=== PATIENT | male | born 1980 | race Caucasian/White ===

== ENCOUNTER 2020-07-30 15:04 | Inpatient (IN) | payer MEDICARE, MEDICAID ==
[~2020-07-30] VITALS: Ht 170.2 cm; Wt 95.8 kg
--- NOTE | 2020-07-30 15:04 | NUR ---
PT BIBRA 102 FROM HOME C/O BILATERAL LOWER EXTREMITY SWELLING. PT IS AAOX4, NOT IN RESPIRATORY DISTRESS, HOOKED TO AUTOMOTIVE POWER ELECTRONICS ENGINEER, KEPT RESTED AND COMFORTABLE. WILL CONTINUE TO MONITOR.
--- NOTE | 2020-07-30 15:17 | NUR ---
SEEN AND EXAMINED BY .
[2020-07-30] MEDS ORDERED: IV NS 0.9% 1,000 ML BAG IV ONE (15:30)
--- NOTE | 2020-07-30 15:30 | NUR ---
ER PHLEB AT BEDSIDE FOR BLOOD DRAW.
--- NOTE | 2020-07-30 15:32 | NUR ---
SUPERVISOR SALVAGE AT BEDSIDE FOR US.
--- NOTE | 2020-07-30 15:48 | NUR ---
PICC LINE NURSE AT BEDSIDE.
[2020-07-30 16:21] LABS: BASOPHILS % (AUTO) 0.2 % (0.0-2.0); EOSINOPHILS % (AUTO) 2.2 % (0.0-6.0); HEMATOCRIT 44 % (39-51); HEMOGLOBIN 14.6 g/dL (13.5-17.5); LYMPHOCYTES # (AUTO) 2.2 /CMM (0.8-4.8); LYMPHOCYTES % (AUTO) 22.1 % (20.0-44.0); MEAN CORPUSCULAR HGB CONC 33 g/dl (31.0-36.0); MEAN CORPUSCULAR VOLUME 85 fL (80-96); MONOCYTES # (AUTO) 0.6 /CMM (0.1-1.30); MONOCYTES % (AUTO) 6.2 % (2.0-12.0); NEUTROPHILS % (AUTO) 69.3 % (43.0-81.0); PLATELET COUNT (AUTO) 270 /CMM (150-450); RED BLOOD CELL COUNT(AUTO) 5.17 MIL/uL (4.5-6.0); WHITE BLOOD COUNT (AUTO) 10.2 K/uL (4.3-11.0)
[2020-07-30 16:31] LABS: CALCIUM, SERUM 8.5 mg/dL (8.5-10.1); CREATININE 0.7 mg/dL (0.6-1.3); POTASSIUM 3.2 mmol/L (3.5-5.1)
[2020-07-30 16:44] LABS: ALBUMIN 3.3 g/dL (3.4-5.0); BILIRUBIN,DIRECT 0.4 mg/dL (0.0-0.2); BILIRUBIN,TOTAL 2.2 mg/dL (0.2-1.0); TOTAL PROTEIN, SERUM 7.5 g/dL (6.4-8.2)
[2020-07-30] MEDS ORDERED: VANCOMYCIN 1 GM in IV D5W 250 ML IV ONE (17:30)
[2020-07-30] MEDS ORDERED: CEFEPIME 1 GM in IV D5W 50 ML IV ONE (17:30)
[2020-07-30] MEDS ORDERED: FUROSEMIDE 20 MG/2 ML VIAL IV ONE (18:00)
[2020-07-30] MEDS ORDERED: FUROSEMIDE 20 MG/2 ML VIAL ONE (18:02)
--- NOTE | 2020-07-30 18:09 | NUR ---
[facility] CALLED BIBLIOGRAPHIC SERVICES SPECIALIST PAGED.
[2020-07-30] MEDS ORDERED: ONDANSETRON HCL/PF 4 MG/2 ML VIAL IVP PRN (18:30)
[2020-07-30] MEDS ORDERED: MAGNESIUM HYDROXIDE 30 ML UDC PO PRN (18:30)
[2020-07-30] MEDS ORDERED: ACETAMINOPHEN 325 MG TABLET PO PRN (18:30)
[2020-07-30] MEDS ORDERED: ZOLPIDEM TARTRATE 5 MG TABLET PO PRN (18:30)
[2020-07-30] MEDS ORDERED: MAG HYDROX/AL HYDROX/SIMETH 30 ML UDC PO PRN (18:30)
[2020-07-30] MEDS ORDERED: Z GUARD REMEDY 2 OZ OINT TP PRN (18:30)
--- NOTE | 2020-07-30 18:46 | NUR ---
UNKNOWN SUBSTANCE OBTAINED FROM THE PATIENT. PER PATIENT "EXPERIMENTAL MEDICATION". SENT TO THE PHARMACY FOR SAFE KEEPING.
--- NOTE | 2020-07-30 18:47 | NUR ---
GOT BED 307-2 PENDING COVID RESULTS
--- NOTE | 2020-07-30 20:01 | NUR ---
report given to Tony
[2020-07-30 20:10] VITALS: BP 102/65
--- NOTE | 2020-07-30 20:15 | NUR ---
ADMISSION NOTE PATIENT ADMITTED BY DR. DUNN TO TELEMETRY FOR CELLULITIS ?CHF. PT BROUGHT FROM ER AND PLACED IN RM 307 BED 2. PT CC WAS GEN EDEMA IN THE LEGS AND REPORTED THAT HE PASSED OUT ONL TO AWAKEN WITH INCREASED PAIN TO RIGHT LEG THIS AM. PT BLE EXTREMITIES NOTED TO BE REDDEND AROUND THE SHINS WITH +1 PITTING EDEMA. PT REPORTS HE CANT WALK DUE TO DECREASED FEELING IN RIGHT LEG AND ALSO PAIN LEVEL IN BOTH EXTREMITIES RATED 8/10. PT PLACED IN BED. ORIENTED TO ROOM. CALL LIGHT PLACED WITHIN REACH. NEW ORDERS RECIEVVED. VERBALIZED UNDERSTANDING TO CALL FOR ASSISTANCE IF NEEDED. TELE APPLIED AND READS ST AT 102. WILL CONT TO MONITOR.
--- NOTE | 2020-07-30 20:22 | NUR ---
pt was transferred to [facility] under acls
[2020-07-30] MEDS ORDERED: CEFTRIAXONE 1 G VIAL ONE (21:00)
[2020-07-30] MEDS: MORPHINE SULFATE INJ 2 MG/ML DISP.SYRIN IV PRN (21:03)
[2020-07-30] MEDS: CEFTRIAXONE 1 G in IV D5W 50 ML IV SCH (21:08)
[2020-07-30 23:57] VITALS: BP 119/78
--- NOTE | 2020-07-31 00:30 | NUR ---
MELODY CONTACTED REGARDING PAIN; NO ORDERS RECIEVED. PATIENT COMPLAINING OF PAIN 8/10 TO LEFT HIP AND LEG. INFORMED DR. OLIVER OF PT REQUEST FOR MORE PAIN MEDICATION. REVIEWED PAIN MEDICATION ORDERED. REVIEWED HISTORY AND CURRENT CONDITION. NO NEW ORDERS RECIEVED.
[2020-07-31] MEDS: MORPHINE SULFATE INJ 2 MG/ML DISP.SYRIN IV PRN ×4 (01:02→17:53)
[2020-07-31] MEDS: HYDROCODONE/APAP 5/325MG TABLET PO PRN ×3 (02:30→20:16)
[2020-07-31 04:00] VITALS: BP 127/83
[2020-07-31 06:25] LABS: BASOPHILS # (AUTO) 0.1 /CMM (0.0-0.2); BASOPHILS % (AUTO) 0.6 % (0.0-2.0); EOSINOPHILS % (AUTO) 4.5 % (0.0-6.0); HEMATOCRIT 41 % (39-51); HEMOGLOBIN 13.7 g/dL (13.5-17.5); LYMPHOCYTES # (AUTO) 2.3 /CMM (0.8-4.8); LYMPHOCYTES % (AUTO) 25.5 % (20.0-44.0); MEAN CORPUSCULAR HGB CONC 34 g/dl (31.0-36.0); MEAN CORPUSCULAR VOLUME 85 fL (80-96); MONOCYTES # (AUTO) 0.6 /CMM (0.1-1.30); MONOCYTES % (AUTO) 6.4 % (2.0-12.0); NEUTROPHILS # (AUTO) 5.7 /CMM (1.8-8.9); PLATELET COUNT (AUTO) 236 /CMM (150-450); RED BLOOD CELL COUNT(AUTO) 4.79 MIL/uL (4.5-6.0); WHITE BLOOD COUNT (AUTO) 9.1 K/uL (4.3-11.0)
[2020-07-31 06:47] LABS: ALBUMIN 2.7 g/dL (3.4-5.0); BILIRUBIN,DIRECT 0.4 mg/dL (0.0-0.2); BILIRUBIN,TOTAL 1.6 mg/dL (0.2-1.0); CREATININE 0.6 mg/dL (0.6-1.3); MAGNESIUM 1.7 mg/dL (1.8-2.4); PHOSPHORUS 2.3 mg/dL (2.5-4.9); POTASSIUM 3.1 mmol/L (3.5-5.1); TOTAL PROTEIN, SERUM 6.7 g/dL (6.4-8.2)
[2020-07-31 07:01] LABS: THYROID STIMULATING HORMONE 0.835 uIU/mL (0.358-3.74)
--- NOTE | 2020-07-31 07:18 | NUR ---
WILDLIFE CONTROL AGENT OPENING NOTES RECEIVED PT AWAKE IN BED WATCHING TV. A/O X4. ABLE TO MAKE NEEDS KNOWN, C/O PAIN ON B/L LEGS AND LEFT HIP BUT TOLERABLE AT THIS TIME. ON ROOM AIR, BREATHING EVEN AND UNLABORED. ON TELE MONITORING WITH CURRENT READING OF SR, HR ON THE 80'S, NO C/O CARDIAC DISTRESS VOICED. FREDDY MIDLINE INTACT AND PATENT. SAFETY MEASURES IN PLACE: BED IN LOWEST LOCKED POSITION WITH SR UP X2. CALL LIGHT W/I REACH. WILL CONTINUE TO MONITOR PT ACCORDINGLY
--- NOTE | 2020-07-31 07:53 | NUR ---
WOUND CARE CONSULT: PT PRESENTS WITH REDNESS TO BILATERAL LOWER LEGS AND LARGE CALLUSES ON GREAT TOES, PRESENT ON ADMISSION. RECOMMEND DPM CONSULT. DR NICOLAS NOTIFIED OF DPM CONSULT REQUEST. IN AGREEMENT WITH PLAN OF CARE. Addendum: 07/31/20 at 0755 by WALDEMAR TINOCO WNDNU Amended: Links added.
[2020-07-31 08:00] VITALS: BP 127/63
--- NOTE | 2020-07-31 08:14 | NUR ---
RN NOTES PATIENT NOTED GRIMACING WITH C/O ACHING AND THROBBING PAIN ON RIGHT HIP WITH SCALE OF 7/10. REQUESTED FOR PAIN MED. PRN NORCO 5/325 MG PO GIVEN AT 0809. WILL CONTINUE TO MONITOR AND REASSESS PT.
[2020-07-31] MEDS: POTASSIUM CHLORIDE 20 MEQ TAB.PRT.SR PO SCH ×3 (08:46→10:59)
[2020-07-31] MEDS: Magnesium 1GM/D5W 100ML PREMIX 100 ML IV SCH ×2 (08:46→09:51)
--- NOTE | 2020-07-31 09:55 | NUR ---
RN NOTES PATIENT C/O ACHING AND THROBBING PAIN ON RIGHT HIP WITH SCALE OF 8/10. REQUESTED FOR PAIN MED. PRN MORPHINE S04 2MG/ML ADMINISTERED AT 0951. WILL CONTINUE TO MONITOR AND REASSESS PT.
[2020-07-31] MEDS ORDERED: K PHOS NEUTRAL 250 MG TABLET PO ONE (11:00)
--- NOTE | 2020-07-31 13:27 | NUR ---
RN NOTES PT NOTED WITH LOW MAGNESIUM 1.7, POTASSIUM 3.1 AND PHOSPHORUS 2.3. ADMINISTERED MAGNESIUM 1GM IV X2 DOSES, K-DUR 20MEQ PO X3 DOSES AND NEUTRA PHOS K TAB 500MG PO ORDERED. WILL CONTINUE TO MONITOR.
--- NOTE | 2020-07-31 15:19 | NUR ---
Shoe Maker note: financial services sales representative received request for consult. SW will follow up with patient at a later time.
[2020-07-31 16:00] VITALS: BP 115/70
--- NOTE | 2020-07-31 18:41 | NUR ---
MS RN CLOSING NOTES PT RESTING IN BED WATCHING TV AT THIS TIME. A/O X4. ABLE TO MAKE NEEDS KNOWN. TOLERATING ROOM AIR WITH NO ACUTE RESPIRATORY DISTRESS NOTED DURING SHIFT. FREDDY MIDLINE INTACT, PATENT AND FLUSHES WELL. ALL NEEDS AND CARE ATTENDED WELL. SAFETY MEASURES IN PLACE: BED IN LOWEST LOCKED POSITION WITH SR UP X2. CALL LIGHT W/I REACH. WILL ENDORSE ROSEANNE TO AUTOMOBILE BODY REPAIR CHIEF NURSE.
--- NOTE | 2020-07-31 19:30 | NUR ---
MS RN OPENING NOTE REPORT RECIEVED FROM ALVA OSUNA. PT IN BED. A/O X4. TOLERATING ROOM AIR WITH NO ACUTE RESPIRATORY DISTRESS NOTED RESP EVEN AND UNLABORED. FREDDY MIDLINE INTACT, PATENT AND FLUSHES. SAFETY MEASURES IN PLACE: BED IN LOWEST LOCKED POSITION WITH SR UP X2. CALL LIGHT W/I REACH. EDEMA TO LEGS NOTED TO BE +1 NON PITTING. REVIEWED POC AND PAIN MANAGEMENT PLAN QUESTIONS CONCERNS ADDRESSED.PT VERBALIZED UNDERSTANDING TO CALL FOR ASSISTANCE NEEDED.
[2020-07-31 20:00] VITALS: BP 121/68
[2020-07-31] MEDS: CEFTRIAXONE 1 G in IV D5W 50 ML IV SCH (20:16)
[2020-08-01] MEDS: MORPHINE SULFATE INJ 2 MG/ML DISP.SYRIN IV PRN ×6 (01:15→20:21)
--- NOTE | 2020-08-01 07:25 | NUR ---
MS RN OPENING NOTE RECEIVED PATIENT IN BED RESTING, AWAKE AND VERBALLY RESPONSIVE. A/O X4, ABLE TO MAKE NEEDS KNOWN. RESPIRATIONS EVEN AND UNLABORED, TOLERATING ROOM AIR. FREDDY MIDLINE INTACT AND PATENT. SAFETY MEASURES IN PLACE: BED IN LOWEST LOCKED POSITION, SR UP X2, CALL LIGHT W/IN REACH. ADVISED TO USE CALL LIGHT FOR STAFF ASSISTANCE. WILL CONTINUE TO MONITOR.
[2020-08-01 08:00] VITALS: BP 123/67
[2020-08-01] MEDS ORDERED: NEUTRA PHOS 1 POWD.PACKET PO SCH ×2 (10:30→11:00)
[2020-08-01] MEDS ORDERED: Magnesium 1GM/D5W 100ML PREMIX 100 ML IV SCH ×2 (10:30→11:00)
--- NOTE | 2020-08-01 10:30 | NUR ---
RN NOTES RECEIVED CALL FROM PHARMACY AND INFORMED THAT ORDERS FOR MAGNESIUM, POTASSIUM, AND NEUTRA PHOS WILL BE REVIEWED BECAUSE LABS WERE FROM YESTERDAY; WILL AWAIT FOR TODAY'S RESULTS AND INFORM MD PER PHARMACY.
[2020-08-01] MEDS ORDERED: POTASSIUM CHLORIDE 20 MEQ TAB.PRT.SR PO SCH ×2 (11:00)
[2020-08-01] MEDS: GABAPENTIN 300 MG CAPSULE PO SCH ×2 (14:55→17:31)
[2020-08-01 15:02] LABS: BASOPHILS % (AUTO) 0.5 % (0.0-2.0); EOSINOPHILS % (AUTO) 1.7 % (0.0-6.0); HEMATOCRIT 43 % (39-51); HEMOGLOBIN 14.3 g/dL (13.5-17.5); LYMPHOCYTES # (AUTO) 1.9 /CMM (0.8-4.8); LYMPHOCYTES % (AUTO) 22.1 % (20.0-44.0); MEAN CORPUSCULAR HGB CONC 33 g/dl (31.0-36.0); MEAN CORPUSCULAR VOLUME 86 fL (80-96); MONOCYTES # (AUTO) 0.6 /CMM (0.1-1.30); MONOCYTES % (AUTO) 6.9 % (2.0-12.0); NEUTROPHILS % (AUTO) 68.8 % (43.0-81.0); PLATELET COUNT (AUTO) 238 /CMM (150-450); WHITE BLOOD COUNT (AUTO) 8.8 K/uL (4.3-11.0)
--- NOTE | 2020-08-01 15:16 | NUR ---
RN NOTES RECEIVED CALL FROM PHARMACY AND INQUIRED ABOUT PATIENT'S METHADONE DOSING; PATIENT STATED THAT HE WAS GOING TO A [facility] (PHONE NUMBER: [phone], FAX NUMBER: [phone]). PER PHARMACY, [facility] REQUIRES RELEASE OF MEDICAL RECORDS FROM PATIENT FOR METHADONE DOSAGE. AUTHORIZATION FORM PRINTED AND SIGNED BY PATIENT, CONSENTED W/ PLAN OF CARE; FORM FAXED TO [facility], AWAITING RESPONSE.
[2020-08-01 15:27] LABS: CALCIUM, SERUM 8.3 mg/dL (8.5-10.1); CREATININE 0.6 mg/dL (0.6-1.3); MAGNESIUM 1.8 mg/dL (1.8-2.4); POTASSIUM 4.1 mmol/L (3.5-5.1)
[2020-08-01 16:00] VITALS: BP 113/74
[2020-08-01] MEDS ORDERED: GLUCERNA SHAKE 237 ML CAN PO SCH (17:00)
[2020-08-01] MEDS: UREA LOTION 10% 177 ML BOTTLE TP SCH (18:07)
--- NOTE | 2020-08-01 18:25 | NUR ---
RN NOTES FACSIMILE TRANSMISSION OF RELEASE OF MEDICAL RECORDS COMPLETED; CONFIRMATION PLACED IN CHART. WILL AWAIT RESPONSE FROM [facility] AND ENDORSE TO NEXT SHIFT NEEDED FOR FOLLOW-UP.
--- NOTE | 2020-08-01 18:50 | NUR ---
MS RN CLOSING NOTE PATIENT RESTING IN BED, AWAKE AND VERBALLY RESPONSIVE. A/O X4, ABLE TO MAKE NEEDS KNOWN. BREATHING EVEN AND UNLABORED, TOLERATING ROOM AIR. FREDDY MIDLINE INTACT AND PATENT. SEEN BY PAIN DOCTOR TODAY W/ RECOMMENDATIONS NOTED. PHARMACY AWARE OF METHADONE ORDER; FORM FAXED TO [facility] TODAY AND AWAITING RESPONSE FOR METHADONE DOSING. ROUTINE MEDS AND PRN MEDS ADMINISTERED ORDERED. SAFETY MEASURES MAINTAINED: BED IN LOWEST LOCKED POSITION, SR UP X2, CALL LIGHT W/IN REACH. ADVISED TO USE CALL LIGHT FOR STAFF ASSISTANCE. WILL ENDORSE TO DEAN FOR STUDENT AFFAIRS RN FOR ROSEANNE.
--- NOTE | 2020-08-01 19:15 | NUR ---
MS/RN OPENING NOTE RECEIVED PATIENT RESTING IN BED. ALERT AND ORIENTED X 4. ABLE TO MAKE NEEDS KNOWN. NO COMPLAINTS OF PAIN AT THIS TIME. IV ACCESS TO FREDDY INTACT AND PATENT. CONTINUES ON IV ABX. CALL LIGHT WITHIN REACH. ASPIRATION, FALL AND SAFETY PRECAUTIONS MAINTAINED. WILL CONTINUE TO MONITOR.
[2020-08-01 20:00] VITALS: BP 155/77
[2020-08-01] MEDS: CEFTRIAXONE 1 G in IV D5W 50 ML IV SCH (20:19)
[2020-08-02] MEDS: MORPHINE SULFATE INJ 2 MG/ML DISP.SYRIN IV PRN ×2 (03:21→07:38)
--- NOTE | 2020-08-02 06:15 | NUR ---
MS/RN CLOSING NOTE PATIENT CURRENTLY RESTING IN BED. ALERT AND ORIENTED X 4. ABLE TO MAKE NEEDS KNOWN. NO COMPLAINTS OF PAIN AT THIS TIME. IV ACCESS TO FREDDY INTACT AND PATENT. CONTINUES ON IV ABX. CALL LIGHT WITHIN REACH. ASPIRATION, FALL AND SAFETY PRECAUTIONS MAINTAINED. WILL ENDORSE PLAN OF CARE TO ONCOMING SHIFT.
--- NOTE | 2020-08-02 07:40 | NUR ---
RN MS NOTES PT IN BED, AWAKE, ALERT AND ORIENTED, WITH COMPLAINT OF RIGHT HIP PAIN, PAIN MEDS GIVEN ORDERED, BREATHING PATTERN NORMAL, CALL LIGHT WITHIN REACH, MIDLINE TO LEFT UPPER ARM INTACT AND PATENT.
[2020-08-02 08:00] VITALS: BP 116/73
[2020-08-02] MEDS ORDERED: LIDOCAINE 5% OINT 35.44 GM TUBE TP SCH (09:00)
[2020-08-02] MEDS: GABAPENTIN 300 MG CAPSULE PO SCH (09:03)
[2020-08-02] MEDS ORDERED: METHADONE HCL 10 MG TABLET PO SCH (09:15)
[2020-08-02] MEDS: UREA LOTION 10% 177 ML BOTTLE TP SCH (09:32)
--- NOTE | 2020-08-02 11:28 | NUR ---
RN MS NOTES PT IN BED, ASLEEP, EASY TO AROUSE, PAIN MEDS GIVEN FOR PAIN MANAGEMENT, SEEN BY DR. KLINE, PT ABLE TO WALK WITH PHYSICAL THERAPIS USING A CANE, TOLERATED ACTIVITY WELL, CALL LIGHT WITHIN REACH.
--- NOTE | 2020-08-02 14:25 | NUR ---
RN MS NOTES PT AWAKE, ALERT AND ORIENTED, ABLE TO WALK INSIDE HIS ROOM WITH STEADY GAIT, NO COMPLAINT OF PAIN AT THIS TIME, NOT IN DISTRESS, TOLERATES ROOM AIR, STILL WITH SWELLING AND REDNESS TO BLE'S, VERBALIZED THAT HE WOULD LIKE TO LEAVE THE HOSPITAL, EXPLAINED TO PT THAT HE IS NOT MEDICALLY CLEARED TO BE DISCHARGED AND THAT IF HE STILL WANTS TO LEAVE IT WILL BE AGAINST MEDICAL ADVICE, PT VERBALIZED UNDERSTANDING, STATED THAT HE REALLY WANTS TO LEAVE AMA, PT REFUSED SKIN CHECK AND SKIN PHOTOS, BELONGINGS ACCOUNTED FOR, PT'S VALUABLES TAKEN FROM THE SAFE AT THE NURSING OFFICE, PT HAS PACKETS OF UNKNOWN SUBSTANCE HE CAME IN WITH DURING ADMISSION AND WAS KEPT AT THE PHARMACY, ASKED NURSING MANUAL TESTER CHRISTINA IF IT IS OK TO RELEASE TO PT SAID UNKNOWN SUBSTANCE, SHE SAID IT IS OKAY TO RELEASE UNKNOWN SUBSTANCE TO PT PER ADVISE OF NIGHAT VLALE, SEEN BY OPHTHALMIC NURSE, ADVISED PT TO SEE HIS PRIMARY CARE PHYSICIAN AND TO GO TO E.R. IN CASE OF EMERGENCY, PROVIDED PT WITH A CANE AND CLOTHING, ASSISTED BY DELIVERY HELPER TO HOSPITAL LOBBY, PT SAID HE IS BOOKING A RIDE HOME, LEFT IN STABLE CONDITION. DR. KLINE MADE AWARE, CHARGE NURSE AND NURSING MANUAL TESTER INFORMED.
--- NOTE | 2020-08-02 15:10 | NUR ---
Social Service Consult: fire services plumber consult requested for substance abuse. Patient is a 40-year-old, white male. SW met with the patient at his hospital bed in the med-surg unit. Patient is alert and oriented x4. Patient is calm and watching television. Per patients chart, patient was brought into the hospital on 07/30/20 for heart failure. Patient stated he will be returning to his prior living arrangements with his partner at [address], [place] [address]; [phone]. Patient plans to use a rideshare service to return home. Patient stated he uses a cane to ambulate. Patient currently receives Disability and is unemployed. SW asked patient about his history of substance use and patient stated he has a history of methamphetamine and opiate use. Patient stated he uses these substances daily, around 5x/day. Patient stated he is aware that his substance use is a problem. Patient denies any history of mental illness. Patient denies any current thoughts of suicide or homicide. SW inquired if the patient is familiar with substance abuse resources. Patient stated that he is aware. SW offered substance abuse resources to the patient. Patient accepted the resources and thanked this SW, stating that he will follow-up with these resources on his own. PLAN: Patient will be discharged to his prior living arrangements. No further SS interventions at this time, however SW will remain available as needed. [facility] Substance Abuse Self-Helpline ([facility]) ; [facility] [address] [facility] [id number] ; [facility] [address] [facility] [address] ; [facility] [address] [facility] [address] ; [facility] [address] [facility] [address] ; [facility]; [place]
== END 2020-08-02 14:30 | disposition left against medical advice (07) | DRG 602 ==
LOC: EDBD 15:06 → ER 15:06 → TELE 19:30 → MED 07-31 10:36
PROVIDERS: ADMIT Student in an Organized Health Care Education/Training Program; ATTEND Internal Medicine
PROC: 05HC33Z Insertion of Infusion Device into Left Basilic Vein, Percutaneous Approach (ICD-10-PCS; principal; 2020-07-30)
DX: L03.115 Cellulitis of right lower limb (principal); G92 Toxic encephalopathy; E44.1 Mild protein-calorie malnutrition; L03.116 Cellulitis of left lower limb; E87.6 Hypokalemia; Z20.822 Contact with and (suspected) exposure to COVID-19; F19.10 Other psychoactive substance abuse, uncomplicated; F15.90 Other stimulant use, unspecified, uncomplicated; E83.42 Hypomagnesemia; F11.90 Opioid use, unspecified, uncomplicated; E80.6 Other disorders of bilirubin metabolism; R74.01 Elevation of levels of liver transaminase levels; Z86.19 Personal history of other infectious and parasitic diseases; L84 Corns and callosities; M20.5X2 Other deformities of toe(s) (acquired), left foot; M20.5X1 Other deformities of toe(s) (acquired), right foot; G89.4 Chronic pain syndrome; L85.9 Epidermal thickening, unspecified
CPT/HCPCS: 36410; 36415; 71045-TC; 73502; 73610-TC; 73620-TC; 76700-TC; 80048-TC; 80061-TC; 80076-TC; 83605-TC; 83735-TC; 83880; 84100-TC; 84443-TC; 84484-TC; 85025-TC; 85730-TC; 87040-TC; 87081-TC; 93307-TC; 93970-TC; 97112-TC; 97116-TC; 97530-TC; C9803; G0378; J0692; J0696; J1940; J2270; J3370; J3475; J7040; J7050; J7060